=== PATIENT | female | born 1975 | race Two or more races ===

== ENCOUNTER 2022-03-01 13:00 | Outpatient (REF) | payer MEDICAID, OTHER, SELFPAY ==
--- NOTE | ~2022-03-01 | MM_ITS ---
EXAMINATION: MM SCREENING DIGITAL BREAST TOMOSYNTHESIS, BILATERAL CLINICAL INFORMATION: Screening. Asymptomatic. Age 36. No known family history breast cancer. Prior mammography from [place] currently unavailable. The lifetime risk of breast cancer based on the Tyrer-Cuzick Model is 12%. COMPARISON: None. TECHNIQUE: Digital breast tomosynthesis is performed in both the craniocaudal and mediolateral oblique views along with computer-aided detection (CAD). Synthesized 2D images are generated from the tomosynthesis. FINDINGS: The breasts are heterogeneously dense, which may obscure small masses (ACR BI-RADS breast composition Category c). There are no significant masses, abnormal calcifications, or other abnormalities. The axilla and skin contours are unremarkable. MM/MM tomosynthesis screening BI IMPRESSION: No mammographic evidence of malignancy. ASSESSMENT: BI-RADS 1: Negative RECOMMENDATION: Routine annual mammography screening. This patient's information was entered into a reminder system with a target due date for their next mammogram.
== END 2022-03-01 13:01 | disposition home or self-care (01) ==
LOC: HO.MAMMO 13:00
PROVIDERS: Visit Provider Family Medicine
DX: Z12.31 Encounter for screening mammogram for malignant neoplasm of breast (principal)
CPT/HCPCS: 77063; 77067

== ENCOUNTER 2022-11-26 15:23 | Outpatient (REF) | payer MEDICAID, OTHER, SELFPAY ==
--- NOTE | ~2022-11-26 | US_ITS ---
EXAMINATION: US PELVIS CLINICAL INFORMATION: Dysmenorrhea; the last menstrual period was on 11/16/2022. COMPARISON: None available. TECHNIQUE: Ultrasound of the pelvis is performed using both transabdominal and transvaginal transducers along with Doppler. Transvaginal imaging is performed due to inadequate visualization transabdominally. FINDINGS: The uterus is of normal size and heterogeneous in echogenicity, measuring 10.8 x 5.9 x 7.5 cm. The uterus is anteverted. A regular, homogeneous endometrium is identified measuring 0.9 cm. Nabothian cysts are seen within the cervix FIBROIDS: There are 4 fibroids seen. 1. Location: Posterior fundus, subendometrial. Size: 1.1 x 0.9 x 1.2 cm. Fibroid characteristics: Hypoechoic. 2. Location: Anterior leftward body, myometrial. Size: 0.7 x 0.5 x 0.6 cm. Fibroid characteristics: Hypoechoic. 3. Location: Anterior upper body, myometrial. Size: 3.7 x 3.4 x 5.6 cm. Fibroid characteristics: Heterogeneous echotexture. 4. Location: Upper fundus, subserosal. Size: 1.7 x 1.0 x 1.9 cm. Fibroid characteristics: Hypoechoic. Both ovaries are of normal size and echogenicity. The right ovary measures 3.6 x 1.7 x 2.8 cm for a volume of 8.6 mL. The left ovary measures 4.5 x 2.3 x 2.9 cm for a volume of 15.8 mL. There is no pelvic free fluid. Within the right adnexal region, a 5.8 x 1.2 x 1.1 cm tubular structure is seen, with appearance suggestive of a hydrosalpinx. US/US pelvic and transvaginal IMPRESSION: 1. There is uterine fibroid disease. 2. Findings suggest a possible right hydrosalpinx. If of continued clinical concern, this can be further evaluated with pelvic MRI. 3. Nabothian cysts are seen within the cervix.
== END 2022-11-26 15:24 | disposition home or self-care (01) ==
LOC: HO.HMGCX 15:23
PROVIDERS: Visit Provider Advanced Practice Midwife
DX: N94.6 Dysmenorrhea, unspecified (principal); N92.0 Excessive and frequent menstruation with regular cycle
CPT/HCPCS: 76830; 76856

== ENCOUNTER 2023-02-18 15:28 | Outpatient (REF) | payer MEDICAID, OTHER, SELFPAY | END 2023-02-18 15:29 | disposition home or self-care (01) | LOC: HO.HHCX 15:28 | PROVIDERS: Visit Provider Registered Nurse | DX: M25.511 Pain in right shoulder (principal) | CPT/HCPCS: 73030 ==

== ENCOUNTER 2023-03-12 15:54 | Outpatient (REF) | payer MEDICAID, OTHER, SELFPAY ==
--- NOTE | ~2023-03-12 | MM_ITS ---
EXAMINATION: MM SCREENING DIGITAL BREAST TOMOSYNTHESIS, BILATERAL CLINICAL INFORMATION: Screening. Asymptomatic. The lifetime risk of breast cancer based on the Tyrer-Cuzick Model is 12.3%. COMPARISON: Mammography: This study is compared with prior exams dating back to 2021. TECHNIQUE: Digital breast tomosynthesis is performed in both the craniocaudal and mediolateral oblique views along with computer-aided detection (CAD). Synthesized 2D images are generated from the tomosynthesis. FINDINGS: The breasts are heterogeneously dense, which may obscure small masses (ACR BI-RADS breast composition Category c). There are no significant masses, abnormal calcifications, or other abnormalities. MM/MM tomosynthesis screening BI IMPRESSION: No mammographic evidence of malignancy. ASSESSMENT: BI-RADS BI-RADS 1 - Negative RECOMMENDATION: Routine annual mammography screening. 1 year F/U This examination should not preclude the clinical evaluation of a suspicious palpable abnormality. This patient's information was entered into a reminder system with a target due date for their next mammogram.
== END 2023-03-12 15:55 | disposition home or self-care (01) ==
LOC: HO.MAMMO 15:54
PROVIDERS: Visit Provider Advanced Practice Midwife
DX: Z12.31 Encounter for screening mammogram for malignant neoplasm of breast (principal)
CPT/HCPCS: 77063; 77067

== ENCOUNTER → 2023-03-12 16:30 | Outpatient (BNV) | payer MEDICAID, SELFPAY | PROVIDERS: Visit Provider Radiology Diagnostic Radiology | DX: Z12.31 Encounter for screening mammogram for malignant neoplasm of breast (principal) | CPT/HCPCS: 77063; 77067 ==

== ENCOUNTER 2023-03-14 16:05 | Outpatient (REF) | payer MEDICAID, OTHER, SELFPAY ==
[2023-03-14 17:40] LABS: MANUAL DIFF FLAG NO
[2023-03-14 17:47] LABS: Basophils Percent Auto 0.4 % (0-2); Eosinophils Absolute Auto 0.2 X10*3/uL (0.0-0.4); Eosinophils Percent Auto 1.9 % (0-4); Hematocrit 36.5 % (37.0-47.0); Hemoglobin 11.5 g/dl (12.0-16.0); Imm Gran Abs Auto 0.03 X10*3/uL (0.00-0.03); Imm Gran Pct Auto 0.4 % (0.0-0.4); Lymphocytes Absolute Auto 2.2 X10*3/uL (1.2-4.9); Lymphocytes Percent Auto 26.6 % (20-40); Mean Corpuscular HGB Conc 31.5 g/dl (31.0-35.0); Mean Corpuscular Hemoglobin 28.6 pg (27.0-33.0); Mean Corpuscular Volume 90.8 fL (80.0-98.0); Mean Platelet Volume 9.7 fL (9.4-12.3); Monocytes Absolute Auto 0.5 X10*3/uL (0.1-1.2); Monocytes Percent Auto 6.1 % (2-11); Neutrophils Absolute Auto 5.3 x10*3/uL (2.0-8.3); Neutrophils Percent Auto 64.6 % (45-73); Platelet Count 369 X10*3/uL (160-400); Red Blood Count 4.02 X10*6/uL (4.20-5.50); Red Cell Distribution Width 14.6 % (11.0-16.0); White Blood Count 8.3 X10*3/uL (4.8-10.8)
[2023-03-14 18:32] LABS: Erythrocyte Sedimentation Rate 23 MM/HR (0-20)
[2023-03-14 18:43] LABS: Iron 32 mcg/dL (30-160); Percent Iron Saturation 9 % (15-50); Total Iron Binding Capacity 354 mcg/dL (228-428); Unsaturated Iron Binding 322 ug/dL
[2023-03-14 18:54] LABS: TSH reflex Free T4 1.11 uIU/mL (0.32-4.0)
[2023-03-14 19:26] LABS: Rheumatoid Factor < 13.0 IU/mL (<15.0)
[2023-03-15 07:49] LABS: Syphilis Screen Nonreactive (Nonreactive)
[2023-03-15 08:49] LABS: HIV AB/AG Nonreactive (Nonreactive); HIV Num 1 0.05 S/CO (0.00-0.99)
[2023-03-15 10:12] LABS: ~HepC Num1 0.11 S/CO (0.00-0.79); ~Hepatitis C Antibody Nonreactive (Nonreactive)
[2023-03-18 15:57] LABS: Immunoglobulin G 1686 mg/dL (600-1640)
[2023-03-19 12:13] LABS: Cyclic Citrullinated Peptide <16 UNITS
[2023-03-20 11:43] LABS: Vitamin B1 18 nmol/L (8-30)
== END 2023-03-14 16:06 | disposition home or self-care (01) ==
LOC: HO.CHCLDS 16:05
PROVIDERS: Absent Provider Family Medicine; Visit Provider Registered Nurse
DX: G89.29 Other chronic pain (principal); R20.8 Other disturbances of skin sensation; Z11.3 Encounter for screening for infections with a predominantly sexual mode of transmission
CPT/HCPCS: 36415; 82784; 83540; 84425; 84443; 85025; 85652; 86140; 86200; 86431; 86780; 86803; 87389

== ENCOUNTER 2023-06-04 18:48 | Outpatient (REF) | payer MEDICAID, OTHER, SELFPAY ==
[2023-06-05 04:01] LABS: CT PCR NOT DETECTED (Not Detect.); NG PCR NOT DETECTED (Not Detect.)
[2023-06-05 13:00] LABS: BV Int Neg Control Negative (Negative); BV Int Pos Control Positive (Positive)
== END 2023-06-04 18:49 | disposition home or self-care (01) ==
LOC: HO.CHCLNP 18:48
PROVIDERS: Visit Provider Advanced Practice Midwife
DX: Z11.3 Encounter for screening for infections with a predominantly sexual mode of transmission (principal)
CPT/HCPCS: 0353U; 87480; 87510; 87660

== ENCOUNTER 2023-08-20 15:58 | Outpatient (REF) | payer MEDICAID, OTHER, SELFPAY ==
[2023-08-20 18:18] LABS: Influenza A PCR NEGATIVE (Negative); Influenza B PCR NEGATIVE (Negative); Resp Syncy Virus RNA Qual PCR NEGATIVE (Negative); SARS COV2 PCR INHOUSE NEGATIVE (Negative)
[2023-08-21 05:55] LABS: CT PCR NOT DETECTED (Not Detect.); NG PCR NOT DETECTED (Not Detect.)
== END 2023-08-20 15:59 | disposition home or self-care (01) ==
LOC: HO.CHCLNP 15:58
PROVIDERS: Visit Provider Family Medicine
DX: J06.9 Acute upper respiratory infection, unspecified (principal); N93.9 Abnormal uterine and vaginal bleeding, unspecified; Z11.52 Encounter for screening for COVID-19; Z20.828 Contact with and (suspected) exposure to other viral communicable diseases
CPT/HCPCS: 0241U; 0353U

== ENCOUNTER 2023-11-04 15:58 | Outpatient (REF) | payer OTHER, SELFPAY ==
[2023-11-04 17:34] LABS: MANUAL DIFF FLAG NO
[2023-11-04 17:53] LABS: Basophils Percent Auto 0.4 % (0-2); Eosinophils Absolute Auto 0.1 X10*3/uL (0.0-0.4); Eosinophils Percent Auto 1.8 % (0-4); Hematocrit 39.4 % (37.0-47.0); Imm Gran Abs Auto 0.02 X10*3/uL (0.00-0.03); Imm Gran Pct Auto 0.3 % (0.0-0.4); Lymphocytes Absolute Auto 2.1 X10*3/uL (1.2-4.9); Lymphocytes Percent Auto 29.6 % (20-40); Mean Corpuscular Hemoglobin 28.8 pg (27.0-33.0); Mean Corpuscular Volume 87.2 fL (80.0-98.0); Mean Platelet Volume 9.8 fL (9.4-12.3); Monocytes Absolute Auto 0.5 X10*3/uL (0.1-1.2); Monocytes Percent Auto 7.4 % (2-11); Neutrophils Absolute Auto 4.3 x10*3/uL (2.0-8.3); Neutrophils Percent Auto 60.5 % (45-73); Platelet Count 395 X10*3/uL (160-400); Red Blood Count 4.52 X10*6/uL (4.20-5.50); Red Cell Distribution Width 13.3 % (11.0-16.0)
[2023-11-04 18:05] LABS: Rheumatoid Factor < 13.0 IU/mL (<15.0)
[2023-11-04 18:16] LABS: Alanine Aminotransferase 21 U/L (0-31); Albumin Level 4.3 g/dL (3.5-5.0); Alkaline Phosphatase 86 U/L (39-117); Anion Gap 13 (12-20); Aspartate Amino Transferase 20 U/L (5-31); Bilirubin Total 0.4 mg/dL (0.0-1.0); Blood Urea Nitrogen 14 mg/dL (9-16); Calcium 9.8 mg/dL (8.4-10.2); Carbon Dioxide 25 mmol/L (22-29); Chloride 106 mmol/L (96-108); Estimated Glomerular Filt Rate > 60; Glucose Random 82 mg/dL (60-115); Potassium 3.5 mmol/L (3.3-5.1); Sodium 140 mmol/L (135-145); Total Protein 8.3 g/dL (6.5-8.0)
[2023-11-04 18:31] LABS: TSH reflex Free T4 2.47 uIU/mL (0.32-4.0)
[2023-11-04 18:59] LABS: Erythrocyte Sedimentation Rate 30 MM/HR (0-20)
[2023-11-05 14:39] LABS: Cyclic Citrullinated Peptide <16 UNITS
[2023-11-09 14:24] LABS: Anti Nuclear Antibody Screen NEGATIVE (NEGATIVE)
== END 2023-11-04 15:59 | disposition home or self-care (01) ==
LOC: HO.CHCLDS 15:58
PROVIDERS: Visit Provider Family Medicine
DX: M25.50 Pain in unspecified joint (principal)
CPT/HCPCS: 36415; 80053; 84443; 85025; 85652; 86038; 86200; 86431

== ENCOUNTER 2023-11-15 07:59 | Outpatient (REF) | payer MEDICAID, OTHER, SELFPAY ==
--- NOTE | ~2023-11-15 | MM_ITS ---
EXAMINATION: MM DIAGNOSTIC DIGITAL BREAST TOMOSYNTHESIS, RIGHT US BREAST LIMITED, RIGHT MAMMOGRAPHY: CLINICAL INFORMATION: 48-year-old female complaining of right breast pain, retroareolar and lower inner quadrant. COMPARISON: Mammography: 03/12/2023, 03/01/2022. TECHNIQUE: Digital right breast tomosynthesis is performed in both the craniocaudal and mediolateral oblique views along with computer-aided detection (CAD). Synthesized 2D images are generated from the tomosynthesis. A full-field right 3-D digital ML view was also included. FINDINGS: The breasts are heterogeneously dense, which may obscure small masses (ACR BI-RADS breast composition Category c). There are no suspicious masses, suspicious grouped calcifications, or areas of architectural distortion in either breast. The parenchymal pattern is stable from prior exams. No mammographic abnormality is present in the right breast lower inner quadrant or retroareolar region to account for patient's complaint of breast pain. ULTRASOUND: CLINICAL INFORMATION: As above COMPARISON: None. TECHNIQUE: Targeted sonographic evaluation was performed using a high frequency linear transducer. Right breast was scanned in the retroareolar region and spanning the 5:00 to 9:00 axis. Selected archived documentation. FINDINGS: RIGHT BREAST: There is a mixture of fatty and fibroglandular tissue. No suspicious mass is seen. There is no pathologic acoustic shadowing. There is no cystic abnormality. There is no ultrasonographic abnormality in the regions of breast pain. MM/MM tomosynthesis diagnostic RT IMPRESSION: There are no findings in the right breast suspicious for malignancy. There is no mammographic or ultrasonographic abnormality in the regions of right breast pain retroareolar and lower inner quadrant. Recommend clinical management of the patient's symptomatology. Otherwise, recommend resuming routine annual screening mammography. OVERALL ASSESSMENT: Mammography: BI-RADS 1 - Negative Ultrasound: BI-RADS 1 - Negative RECOMMENDATION: 1. Patient should be managed based on the clinical impression. 2. Otherwise, routine annual screening mammography. Results were provided to the patient at time of visit by the technologist. This patient's information was entered into a reminder system with a target due date for their next mammogram.
== END 2023-11-15 08:00 | disposition home or self-care (01) ==
LOC: HO.MAMMO 07:59
PROVIDERS: PCP Family Medicine; Visit Provider Family Medicine
DX: N64.4 Mastodynia (principal)
CPT/HCPCS: 76642; 77061; 77065

== ENCOUNTER → 2023-11-15 08:30 | Outpatient (BNV) | payer SELFPAY | PROVIDERS: PCP Family Medicine; Visit Provider Radiology Diagnostic Radiology | DX: N64.4 Mastodynia (principal) | CPT/HCPCS: 76642; 77061; 77065 ==

== ENCOUNTER 2024-01-21 15:53 | Outpatient (REF) | payer SELFPAY ==
[2024-01-31 03:49] LABS: HPV mRNA E6/E7 rflx Not Detected (Not Detected)
== END 2024-01-21 15:54 | disposition home or self-care (01) ==
LOC: HO.HHCLNP 15:53
PROVIDERS: Visit Provider Advanced Practice Midwife
DX: Z12.4 Encounter for screening for malignant neoplasm of cervix (principal); Z11.51 Encounter for screening for human papillomavirus (HPV)
CPT/HCPCS: 87624; 88142

== ENCOUNTER 2024-01-31 13:51 | Outpatient (REF) | payer OTHER, SELFPAY ==
--- NOTE | ~2024-01-31 | US_ITS ---
EXAMINATION: US PELVIS CLINICAL INFORMATION: Fibroids COMPARISON: Previous pelvic ultrasound November 2022 TECHNIQUE: Ultrasound of the pelvis is performed using both transabdominal and transvaginal transducers along with Doppler. Transvaginal imaging is performed due to inadequate visualization transabdominally. Patient's bladder was not full and transabdominal imaging is limited. FINDINGS: The uterus is anteverted and measures 10.8 x 7 x 8.4 cm in dimension. Uterine echotexture is heterogeneous. There are multiple hypoechoic and hyperechoic uterine lesions suggestive of fibroids. Difficult to compare with prior exam. 5 fibroids are seen. These measure 1.5 x 1.6 x 2 cm and 1.5 x 1.9 cm in the fundus and 5 x 9 mm, 1.7 x 1.3 x 1.6 cm in (probably previously 3.7 x 3.3 x 5.6 cm) and 1.2 x 1.3 cm in the anterior uterine body. The endometrium is not well visualized secondary to the fibroids. Endometrium does not appear thickened measuring 0.6 cm. The ovaries are seen transabdominally only. The right ovary measures 2.6 x 1.6 x 2.5 cm and the left ovary measures 3.3 x 2.3 x 1.9 cm. There is no fluid in the pelvis. US/US pelvic and transvaginal IMPRESSION: Limited exam. Fibroid uterus. Largest fibroid measures 1.7 x 1.3 x 1.6 cm and may be decreased from previous exam. Comparison of fibroids is difficult. Normal-appearing ovaries.
== END 2024-01-31 13:52 | disposition home or self-care (01) ==
LOC: HO.HMGCX 13:51
PROVIDERS: PCP Family Medicine; Visit Provider Advanced Practice Midwife
DX: D21.9 Benign neoplasm of connective and other soft tissue, unspecified (principal)
CPT/HCPCS: 76830; 76856